=== PATIENT | female | born 1950 | race Caucasian/White ===

== ENCOUNTER 2018-01-30 04:34 | Observation (INO) ==
[2018-01-30] MEDS ORDERED: Pantoprazole Inj 80 MG in Sodium Chlor 0.9% Inj 50 ML IV.SIG ONE (05:06)
[2018-01-30 05:24] LABS: Baso % (Auto) 0.3 % (0.0-2.0); Eos # (Auto) 0.2 th/mm3 (0.0-0.4); Eos % (Auto) 1.6 % (0.0-4.0); Hematocrit 31.4 % (35.0-46.0); Hemoglobin 10.3 gm/dL (11.6-15.3); Lymph # (Auto) 2.7 th/mm3 (1.0-4.8); Lymph % (Auto) 19.2 % (9.0-44.0); Mean Corpuscular HGB Conc 32.8 % (32.0-36.0); Mean Corpuscular Hemoglobin 32.5 pg (27.0-34.0); Mean Corpuscular Volume 99.1 fL (80.0-100.0); Mean Platelet Volume 8.5 fL (7.0-11.0); Neut # (Auto) 10.2 th/mm3 (1.8-7.7); Neut % (Auto) 71.9 % (16.0-70.0); Platelet Count 227 th/mm3 (150-450); Red Blood Count 3.16 mil/mm3 (4.00-5.30); Red Cell Distribution Width 13.7 % (11.6-17.2); White Blood Count 14.2 th/mm3 (4.0-11.0)
[2018-01-30] MEDS: Sod Chloride 0.9% Inj 1,000 ML IV.CONT SCH ×3 (05:32→21:10)
[2018-01-30 05:36] LABS: Activated Partial Thrombo Time 21.7 sec (24.3-30.1); INR 1.1 Ratio; Prothrombin Time 10.7 sec (9.8-11.6)
--- NOTE | 2018-01-30 05:39 | XR ---
EXAM DATE: 01/30/2018 5:24 AM EDT AGE/SEX: 68 years / Female INDICATIONS: Short of breath, blood in stool, low back pain CLINICAL DATA: This is the patient's initial encounter. Patient reports that signs and symptoms have been present for 1 day and indicates a pain score of 5/10. MEDICAL/SURGICAL HISTORY: None. . spinal stimulatory COMPARISON: . FINDINGS: A single AP view of the chest demonstrates the lungs to be symmetrically aerated without evidence of mass, infiltrate or effusion. The cardiomediastinal contours are unremarkable. Osseous structures are intact. There is a spinal stimulator with tip near T8. CONCLUSION: No evidence of acute cardiopulmonary disease. Electronically signed by: Connor Ray MD 01/30/2018 5:38 AM EDT
[2018-01-30 05:43] LABS: Alanine Aminotransferase 19 U/L (10-53); Albumin 3.5 g/dL (3.4-5.0); Anion Gap 9 meq/L (5-15); Aspartate Aminotransferase 15 U/L (15-37); Blood Urea Nitrogen 68 mg/dL (7-18); Calcium 8.5 mg/dL (8.5-10.1); Carbon Dioxide 21.7 meq/L (21.0-32.0); Chloride 109 meq/L (98-107); Glomerular Filtration Rate 26 mL/min (>89); Glucose,Random 101 mg/dL (74-106); Lipase 102 U/L (73-393); Magnesium 1.7 mg/dL (1.5-2.5); Potassium 4.1 meq/L (3.5-5.1); Sodium 140 meq/L (136-145)
[2018-01-30 05:47] LABS: Alkaline Phosphatase 106 U/L (45-117); Total Protein 7.2 g/dL (6.4-8.2)
[2018-01-30] MEDS ORDERED: Pantoprazole Inj 80 MG in Sodium Chlor 0.9% Inj 100 ML IV.CONT SCH (06:00)
--- NOTE | 2018-01-30 06:11 | ED ---
HPI General Chief complaint: Nausea/Vomiting/Diarrhea Stated complaint: Bleeding Time Seen by Provider: 01/30/18 04:44 Source: patient Limitations: no limitations History of Present Illness HPI narrative: The patient is a 68 year old female who presents to the [facility] emergency department with a history of generalized weakness, fatigue, dyspnea on exertion that began earlier today. She reports that at 12:30 PM she then noticed blood in her stool with moving her bowels. She reports that she had 2 additional episodes prior to coming to the emergency department. She reports that she does have abdominal pain at times, however she attributes this to chronic intermittent abdominal pain since her gastric bypass. The patient reports that she does have acid reflux and this has been somewhat worse recently. She reports that she does take medication for this. She reports that she last had a colonoscopy done 1 year ago which was reportedly unremarkable. She denies ever having a GI bleed previously. She denies having any nausea or vomiting associated with this. She denies having any chest pain or chest pressure. She denies taking any anti-inflammatory pain medications. She denies having any known recent fevers. She does report having worsening recent back pain. She reports having chronic back pain related to degenerative disc disease and 2 prior fusions. She reports that she last had an epidural steroid injection done on Tuesday. She denies having any dysuria, hematuria, urinary urgency, or frequency. On review of systems otherwise, the patient denies having any cough, congestion, neck pain, or neurologic symptoms. Related Data Home Medications Medication Instructions Recorded Confirmed allopurinol 100 mg PO DAILY 01/30/18 01/30/18 famotidine 20 mg PO DAILY 01/30/18 01/30/18 fentanyl 1 patch TRANSDERMAL Q48H 01/30/18 01/30/18 ferrous sulfate 325 mg PO BID 01/30/18 01/30/18 fluoxetine [Prozac] 10 mg PO DAILY 01/30/18 01/30/18 hydrocodone-acetaminophen 1 tab PO Q6H 01/30/18 01/30/18 linaclotide [Linzess] 145 mcg PO EVERY OTHER DAY 01/30/18 01/30/18 pravastatin 40 mg PO DAILY 01/30/18 01/30/18 ranitidine HCl 150 mg PO BID 01/30/18 01/30/18 ropinirole 0.5 mg PO DAILY 01/30/18 01/30/18 trazodone 100 mg PO HS PRN 01/30/18 01/30/18 Allergies Allergy/AdvReac Type Severity Reaction Status Date / Time morphine Allergy Unconscious Verified 01/30/18 04:40 Penicillins Allergy Hives Verified 01/30/18 04:40 Review of Systems ROS: all other systems reviewed are negative FOR[facility]LY [facility] Medical History Medical History Chronic back pain (Acute) Chronic renal insufficiency (Acute) Fibromyalgia (Acute) Surgical History Surgical History H/O gastric bypass (Acute) H/O knee surgery (Acute) H/O spinal fusion (Acute) Hx of cholecystectomy (Acute) Social History Social History Substance History: No History of Abuse Second Hand Smoke Exposure: No Smoking Status: Never smoker How Often Do You Have a Drink Containing Alcohol: Never Recent Travel in [facility] within the Last 8 Weeks: No Recent Out of Country Travel within the Last 8 Weeks: No Immunization History Tetanus Immunization: >5 Years Exam Const General: cooperative, no acute distress and well developed Nutritional Appearance: well nourished Orientation: alert, awake and oriented x3 HENMT Head: normocephalic and atraumatic Nose: no nasal discharge and no epistaxis Mouth: moist mucous membranes Throat: posterior oropharynx normal and uvula midline Eyes Sclera: normal sclerae Pupils: PERRL Neck Neck: no meningeal signs, trachea midline and no JVD Resp Effort & Inspection: no use of accessory muscles Auscultation: clear to auscultation bilaterally Cardio Rate: regular rate Rhythm: regular rhythm Heart Sounds: no murmurs GI Inspection: non-distended Palpation: soft, no hepatosplenomegaly, no guarding, not rigid and tender in the epigastrum; not in the LLQ, not in the RLQ, not in the LUQ, not in the RUQ, not at McBurney's point, not suprapubicly, Farfan's sign negative and with no rebound tenderness Auscultation: normal bowel sounds Rectal Exam: visual inspection normal, abnormal stool black, No fissure, heme positive stool, No hemorrhoids, No mass and No tenderness Back/Spine/Pelvis Back: no CVA tenderness Skin General: dry skin (warm) Neuro General: alert, awake, oriented x3 and other (Grossly nonfocal.) Speech: speech normal Motor: no movement abnormalities noted Extrem General: normal to inspection (2+ pulses in all 4 extremities.), no calf tenderness, no clubbing, no cyanosis and no edema Psych Mood: congruent mood Affect: normal affect Judgment: judgment good Course Initial Documented Vital Signs Temperature 97.2 F L 01/30/18 04:36 Pulse Rate 116 H 01/30/18 04:36 Respiratory Rate 18 01/30/18 04:36 Blood Pressure 127/73 01/30/18 04:36 Pulse Oximetry 98 01/30/18 04:36 Last Documented Vital Signs Temperature 97.2 F L 01/30/18 04:36 Pulse Rate 78 01/30/18 07:30 Respiratory Rate 24 01/30/18 07:30 Blood Pressure 112/57 L 01/30/18 07:30 Pulse Oximetry 99 01/30/18 07:30 Sign Out Sign Out Data: Patient Sign Out occurred on 01/30/18 at 07:39. Patient's care was discussed, and care was transferred from Maura Duncan MD to Devon Vizcaino MD. Sign Out Comment: The patient's case was checked out to the oncoming emergency physician to disposition the patient based on the conclusion of her workup. Anticipate that the patient will be admitted for a GI bleed. Patient is pending CT scan of the abdomen and pelvis results. Last updated by Maura Duncan MD at 01/30/18 07:16 Post-Handoff Eval: The patient's hemoglobin was 10.8. Creatinine was elevated, however, patient does have a history of CKD. The patient recently moved from [place] 1 year ago, does have a primary physician, Dr. Delia Eduardo, however, does not have a quiller tender in the local area. The patient did have her last panendoscopy approximately 1 year ago. She is not currently on any anticoagulants. However, the patient did have another episode of melena while in the emergency department. Therefore, patient will be a 23-hour observation for serial CBC and gastroneurology evaluation for possible and panendoscopy either inpatient or scheduled outpatient. The patient is comfortable with this plan of care and disposition. I discussed the patient with the on-call medical team who agreed with admission. Medical Decision Making MDM Narrative Medical decision making narrative: During the course of the patient's emergency department visit, the patient's history, examination, and differential diagnosis were reviewed with the patient. The patient was placed on a cardiac rn with oximetry and frequent blood pressure monitoring. The patient had IV access obtained and blood work sent for analysis. A diagnostic evaluation was started regarding the patient's lower GI bleed. The patient was initially provided normal saline IV fluids, Protonix 80 mg as a bolus, followed by a Protonix drip. The patient's diagnostic evaluation is remarkable for a white count of 14.2, hemoglobin 10.3, platelets 227 with 71.9 neutrophils, PT 10.7, INR 1.1, PTT 21.7 , chemistries remarkable for chloride of 109, BUN is 68, creatinine 1.90. Troponin I is less than 0.02, ammonia level within normal limits at 25, lipase within normal limits. The patient's chest x-ray showed no evidence of acute cardiopulmonary disease. The patient is pending CT scan of the abdomen and pelvis. The patient's case will be checked out to the oncoming emergency physician to disposition the patient based on the conclusion of her workup. I anticipate that the patient will be admitted to the hospital for a GI bleed. Medical Screen Exam Complete: Yes Emergency Medical Condition: Yes Medical Records Medical records reviewed: Yes I reviewed the patient's medical records. Lab Data Lab results reviewed: Yes I reviewed the patient's lab results. Result diagrams: 01/30/18 05:15 01/30/18 05:15 Lab Results 01/30/18 01/30/18 01/30/18 Range/Units 05:15 05:15 05:15 WBC 14.2 H (4.0-11.0) th/mm3 RBC 3.16 L (4.00-5.30) mil/mm3 Hgb 10.3 L (11.6-15.3) gm/dL Hct 31.4 L (35.0-46.0) % MCV 99.1 (80.0-100.0) fL MCH 32.5 (27.0-34.0) pg MCHC 32.8 (32.0-36.0) % RDW 13.7 (11.6-17.2) % Plt Count 227 (150-450) th/mm3 MPV 8.5 (7.0-11.0) fL Neut % (Auto) 71.9 H (16.0-70.0) % Lymph % (Auto) 19.2 (9.0-44.0) % [place] % (Auto) 7.0 (0.0-8.0) % Eos % (Auto) 1.6 (0.0-4.0) % Baso % (Auto) 0.3 (0.0-2.0) % Neut # (Auto) 10.2 H (1.8-7.7) th/mm3 Lymph # (Auto) 2.7 (1.0-4.8) th/mm3 [place] # (Auto) 1.0 H (0.0-0.9) th/mm3 Eos # (Auto) 0.2 (0.0-0.4) th/mm3 Baso # (Auto) 0.0 (0.0-0.2) th/mm3 WBC Differential . Differential Comment Auto diff final PT 10.7 (9.8-11.6) sec INR 1.1 Ratio APTT 21.7 L (24.3-30.1) sec Sodium 140 (136-145) meq/L Potassium 4.1 (3.5-5.1) meq/L Chloride 109 H (98-107) meq/L Carbon Dioxide 21.7 (21.0-32.0) meq/L Anion Gap 9 (5-15) meq/L BUN 68 H (7-18) mg/dL Creatinine 1.90 H (0.50-1.00) mg/dL Estimated GFR 26 L (>89) mL/min Random Glucose 101 (74-106) mg/dL Calcium 8.5 (8.5-10.1) mg/dL Magnesium 1.7 (1.5-2.5) mg/dL Total Bilirubin 0.3 (0.2-1.0) mg/dL AST 15 (15-37) U/L ALT 19 (10-53) U/L Alkaline Phosphatase 106 (45-117) U/L Ammonia (11-32) mcmol/L Troponin I Less than 0.02 L (0.02-0.05) ng/mL Total Protein 7.2 (6.4-8.2) g/dL Albumin 3.5 (3.4-5.0) g/dL Lipase 102 (73-393) U/L Blood Type Blood Type Recheck Antibody Screen 01/30/18 01/30/18 Range/Units 05:15 05:15 WBC (4.0-11.0) th/mm3 RBC (4.00-5.30) mil/mm3 Hgb (11.6-15.3) gm/dL Hct (35.0-46.0) % MCV (80.0-100.0) fL MCH (27.0-34.0) pg MCHC (32.0-36.0) % RDW (11.6-17.2) % Plt Count (150-450) th/mm3 MPV (7.0-11.0) fL Neut % (Auto) (16.0-70.0) % Lymph % (Auto) (9.0-44.0) % [place] % (Auto) (0.0-8.0) % Eos % (Auto) (0.0-4.0) % Baso % (Auto) (0.0-2.0) % Neut # (Auto) (1.8-7.7) th/mm3 Lymph # (Auto) (1.0-4.8) th/mm3 [place] # (Auto) (0.0-0.9) th/mm3 Eos # (Auto) (0.0-0.4) th/mm3 Baso # (Auto) (0.0-0.2) th/mm3 WBC Differential Differential Comment PT (9.8-11.6) sec INR Ratio APTT (24.3-30.1) sec Sodium (136-145) meq/L Potassium (3.5-5.1) meq/L Chloride (98-107) meq/L Carbon Dioxide (21.0-32.0) meq/L Anion Gap (5-15) meq/L BUN (7-18) mg/dL Creatinine (0.50-1.00) mg/dL Estimated GFR (>89) mL/min Random Glucose (74-106) mg/dL Calcium (8.5-10.1) mg/dL Magnesium (1.5-2.5) mg/dL Total Bilirubin (0.2-1.0) mg/dL AST (15-37) U/L ALT (10-53) U/L Alkaline Phosphatase (45-117) U/L Ammonia 25 (11-32) mcmol/L Troponin I (0.02-0.05) ng/mL Total Protein (6.4-8.2) g/dL Albumin (3.4-5.0) g/dL Lipase (73-393) U/L Blood Type A Negative Blood Type Recheck Required Antibody Screen Negative Imaging Data Radiologist's impression: Chest X-Ray 01/30/18 05:06 CONCLUSION: No evidence of acute cardiopulmonary disease. Abdomen/Pelvis CT 01/30/18 06:23 CONCLUSION: 1. Transpedicular fixation L4-L5 with fracture of the hardware 2. Previous gastric bypass surgery 3. Spinal stimulator 4. Do not see an etiology for the blood in the stool. Discharge Plan Discharge Disposition Patient Disposition: 30 Still Patient Discharge Condition Condition: Stable Discharge Details Diagnosis: GI bleed Physicians Team ED Provider: Devon Vizcaino Primary Care Provider: Primary Care Maral Lewis Rxs /Orders / Referrals /Forms Prescriptions: No Action pravastatin 40 mg Tablet 40 mg PO DAILY RF: 0 allopurinol 100 mg Tablet 100 mg PO DAILY RF: 0 famotidine 20 mg Tablet 20 mg PO DAILY RF: 0 trazodone 100 mg Tablet 100 mg PO HS PRN (Reason: Sleep) RF: 0 hydrocodone-acetaminophen 7.5-325 mg Tablet 1 tab PO Q6H RF: 0 ferrous sulfate 325 mg (65 mg iron) Tablet 325 mg PO BID RF: 0 ropinirole 0.5 mg Tablet 0.5 mg PO DAILY RF: 0 ranitidine HCl 150 mg Tablet 150 mg PO BID RF: 0 fluoxetine [Prozac] 10 mg Capsule 10 mg PO DAILY RF: 0 fentanyl 25 mcg/hr Patch 72 Hour 1 patch TRANSDERMAL Q48H RF: 0 linaclotide [Linzess] 145 mcg Capsule 145 mcg PO EVERY OTHER DAY RF: 0 Discharge Interventions Interventions: Vital Signs Last Done: 01/30/18 07:30 Status ED Status: Admitted Patient
[2018-01-30] MEDS ORDERED: Diatrizoate Meglum/Diatrizoate Sod Liq 9 ML UDC PO ONE (06:23)
--- NOTE | 2018-01-30 08:11 | CT ---
EXAM DATE: 01/30/2018 8:04 AM EDT AGE/SEX: 68 years / Female INDICATIONS: Blood in stool. CLINICAL DATA: This is the patient's initial encounter. Patient reports that signs and symptoms have been present for 1 day and indicates a pain score of 0/10. MEDICAL/SURGICAL HISTORY: Chronic renal insufficiency. Gastric bypass. Cholecystectomy. Fusio n, lumbar. Pain stimulator. RADIATION DOSE: 6.57 CTDI (mGy) COMPARISON: No prior exams available for comparison. TECHNIQUE: Multiple contiguous axial images were obtained through the abdomen. Images were obtained using multiple row detector helical technique. Using automated exposure control and adjustment of the mA and/or kV according to patient size, radiation dose was kept as low as reasonably achievable to o btain optimal diagnostic quality images. DICOM format image data is available electronically for rev iew and comparison. FINDINGS: The lower lungs are clear. Previous gastric surgery Liver is free of focal defects. Gallbladder surgically absent. Pancreas and spleen appear normal Minimal peritoneal calcifications are present adjacent to the spleen nonspecific. There is no ascites or adenopathy Cecum, ascending, transverse and descending colon appear normal. There is previous transpedicular fixation lower lumbar spine with fracture of the hardware. Spinal stimulator is evident Pelvic contents are unremarkable. I don't see an etiology for the blood in the stool. Review of bone windows reveals extensive previous surgery in the lower lumbar spine with transpedicul ar fixation from L2 to L5 with hardware failure. CONCLUSION: 1. Transpedicular fixation L4-L5 with fracture of the hardware 2. Previous gastric bypass surgery 3. Spinal stimulator 4. Do not see an etiology for the blood in the stool. Electronically signed by: Kwaku Abarca MD 01/30/2018 8:10 AM EDT
--- NOTE | 2018-01-30 09:14 | P.HPIM ---
History of Present Illness Service: [facility] Primary Care Physician: No Primary Care Physician Chief Complaint: bloody stools History of Present Illness: The is a 68 y/o CF with PMHx of Gastric Bypass, GERD, and Chronic pain who presents to the [facility] emergency department with a history of generalized weakness, fatigue, and melena that began yesterday at 12:30 PM. She reports that she had a large bowel movement that was loose with dark contents around the stool that looked like old blood. Patient also reports that there were small amounts of bright red blood around the toilet bowl ring. Patient is on FeSulfate but reports that her stool is different from baseline. She reports that she had 2 additional BM's prior to coming to the emergency department that were the same. Patient reports that she last had a colonoscopy done 1 year ago which was WNL in [place]. She denies ever having a GI bleed previously. Hx of chronic back pain related to degenerative disc disease s/p fusion, patient had an epidural steroid injection on Tuesday. Patient also has a history of a EGD and colonoscopy that were WNL 4-5 years ago which were done due to abdominal pain status post gastric bypass surgery. Patient used to see a GI doctor in [place] but here in [place] sees a pig machine operator and a PCP, Dr. Eduardo. Of note, patient moved from [place] 6 months ago. - Diagnosis (1) Anxiety (2) Depression (3) GERD (gastroesophageal reflux disease) (4) GI bleed Review of Systems All other systems reviewed negative except as stated in HPI PMFSH - History History Provided By: Patient - Medical History Medical History: Medical History (Last Reviewed 01/30/18 @ 09:44 by Aster Hackett MD) Chronic back pain Chronic renal insufficiency Fibromyalgia - Surgical History Surgical History: Surgical History (Last Reviewed 01/30/18 @ 09:44 by Aster Hackett MD) H/O gastric bypass H/O knee surgery H/O spinal fusion Hx of cholecystectomy - Family History Family History: Family History (Last Updated 01/30/18 @ 09:45 by Aster Hackett MD) Other Family history normal - Tobacco History Second Hand Smoke Exposure: No Smoking Status: Never smoker - Alcohol History How Often Do You Have a Drink Containing Alcohol: Never - Substance Use History Substance History: No History of Abuse - Travel History Recent Travel in the [facility] Within the Last 8 Weeks: No Recent Travel Out of the Country Within the Last 8 Weeks: No - Immunization History Tetanus Immunization: >5 Years Medications and Allergies Active Medications: Active Medications Pantoprazole Sodium 80 mg/ (Sodium Chloride) 100 mls @ 10 mls/hr IV.CONT CONT DALTON Last Admin: 01/30/18 05:32 Dose: 10 mls/hr Sodium Chloride (Ns Inj) 1,000 mls @ 125 mls/hr IV.CONT .Q8H DALTON Last Admin: 01/30/18 05:32 Dose: 125 mls/hr Ondansetron HCl (Zofran Inj) 4 mg IV.PUSH Q6H PRN PRN Reason: NAUSEA Pantoprazole Sodium (Protonix Inj) 40 mg IV.PUSH DAILY DALTON Sodium Chloride (Ns Flush) 2 ml IV.FLUSH BID DALTON Sodium Chloride (Ns Flush) 2 ml IV.FLUSH UNSCH PRN PRN Reason: FLUSH AFTER USING IV ACCESS Allergies Allergy/AdvReac Type Severity Reaction Status Date / Time morphine Allergy Unconscious Verified 01/30/18 04:40 Penicillins Allergy Hives Verified 01/30/18 04:40 Home Medications Medication Instructions Recorded Confirmed Type allopurinol 100 mg PO DAILY 01/30/18 01/30/18 History famotidine 20 mg PO DAILY 01/30/18 01/30/18 History fentanyl 1 patch TRANSDERMAL Q48H 01/30/18 01/30/18 History ferrous sulfate 325 mg PO BID 01/30/18 01/30/18 History fluoxetine [Prozac] 10 mg PO DAILY 01/30/18 01/30/18 History hydrocodone-acetaminophen 1 tab PO Q6H 01/30/18 01/30/18 History linaclotide [Linzess] 145 mcg PO EVERY OTHER DAY 01/30/18 01/30/18 History pravastatin 40 mg PO DAILY 01/30/18 01/30/18 History ranitidine HCl 150 mg PO BID 01/30/18 01/30/18 History ropinirole 0.5 mg PO DAILY 01/30/18 01/30/18 History trazodone 100 mg PO HS PRN 01/30/18 01/30/18 History Exam Vital signs: Vital Signs 01/30/18 04:36 01/30/18 04:57 01/30/18 05:53 Temperature 97.2 F L Pulse Rate 116 H 103 H Respiratory Rate 18 25 H Blood Pressure 127/73 118/58 L Pulse Oximetry 98 99 99 01/30/18 07:30 Temperature Pulse Rate 78 Respiratory Rate 24 Blood Pressure 112/57 L Pulse Oximetry 99 Intake & Output 01/29/18 01/30/18 01/30/18 18:59 06:59 18:59 Intake Total 50 / 50 Balance 50 / 50 Weight 61.235 kg Intake: IV 50 / 50 Protonix Inj 80 MG In NS Inj 50 50 / 50 ML @ 600 mls/hr IV.SIG BOLUS ONE Rx#:[id number] Narrative: GENERAL: female, in no acute distress, lying comfortably in bed SKIN: Warm and dry. HEENT: Normocephalic. Atraumatic. PERRLA. No scleral icterus. No injection or drainage. MOM. NECK: Supple, trachea midline. No JVD or lymphadenopathy. CARDIOVASCULAR: Regular rate and rhythm without murmurs, gallops, or rubs. RESPIRATORY: Breath sounds equal bilaterally. No accessory muscle use. GASTROINTESTINAL: Abdomen soft, non-tender, nondistended. Neg rebound, well- healed surgical scars. MUSCULOSKELETAL: No cyanosis, or edema. BACK: Nontender without obvious deformity. No CVA tenderness. NEURO: AAO x3, no focal deficits, motor system intact 5/5, speech clear. Results - Labs CBC & Chem 7: 01/30/18 05:15 01/30/18 05:15 Labs: Short CBC 01/30/18 Range/Units 05:15 WBC 14.2 H (4.0-11.0) th/mm3 Hgb 10.3 L (11.6-15.3) gm/dL Hct 31.4 L (35.0-46.0) % Plt Count 227 (150-450) th/mm3 BMP 01/30/18 05:15 Sodium 140 Potassium 4.1 Chloride 109 H Carbon Dioxide 21.7 BUN 68 H Creatinine 1.90 H Calcium 8.5 Cardiac Enzymes 01/30/18 Range/Units 05:15 Troponin I Less than 0.02 L (0.02-0.05) ng/mL Liver Function 01/30/18 Range/Units 05:15 Total Bilirubin 0.3 (0.2-1.0) mg/dL AST 15 (15-37) U/L ALT 19 (10-53) U/L Alkaline Phosphatase 106 (45-117) U/L Albumin 3.5 (3.4-5.0) g/dL - Imaging Impressions Chest X-Ray 01/30/18 05:06 CONCLUSION: No evidence of acute cardiopulmonary disease. Abdomen/Pelvis CT 01/30/18 06:23 CONCLUSION: 1. Transpedicular fixation L4-L5 with fracture of the hardware 2. Previous gastric bypass surgery 3. Spinal stimulator 4. Do not see an etiology for the blood in the stool. Caprini VTE Risk Assessment Caprini VTE Risk Assessment: No/Low Risk (score <= 1) Caprini Risk Assessment Model: Point Value = 1 Point Value = 2 Point Value = 3 Point Value = 5 Age 41-60 Minor surgery BMI > 25 kg/m2 Swollen legs Varicose veins or History of unexplained or recurrent spontaneous Oral contraceptives or hormone replacement Sepsis (< 1 month) Serious lung disease, including pneumonia (< 1 month) Abnormal pulmonary function Acute myocardial infarction Congestive heart failure (< 1 month) History of inflammatory bowel disease Medical patient at bed rest Age 61-74 Arthroscopic surgery Major open surgery (> 45 min) Laparoscopic surgery (> 45 min) Malignancy Confined to bed (> 72 hours) Immobilizing plaster cast Central venous access Age >= 75 History of VTE Family history of VTE Factor V Leiden Prothrombin [id number] Lupus anticoagulant Anticardiolipin antibodies Elevated serum homocysteine Heparin-induced thrombocytopenia Other congenital or acquired thrombophilia Stroke (< 1 month) Elective arthroplasty Hip, pelvis, or leg fracture Acute spinal cord injury (< 1 month) Prophylaxis Regimen: Total Risk Factor Score Risk Level Prophylaxis Regimen 0-1 Low Early ambulation 2 Moderate Order ONE of the following: *Sequential Compression Device (SCD) *Heparin 5000 units SQ BID 3-4 Higher Order ONE of the following medications: *Heparin 5000 units SQ TID *Enoxaparin/Lovenox 40 mg SQ daily (WT < 150 kg, CrCl > 30 mL/min) *Enoxaparin/Lovenox 30 mg SQ daily (WT < 150 kg, CrCl > 10-29 mL/min) *Enoxaparin/Lovenox 30 mg SQ BID (WT < 150 kg, CrCl > 30 mL/min) AND/OR *Sequential Compression Device (SCD) 5 or more Highest Order ONE of the following medications: *Heparin 5000 units SQ TID (Preferred with Epidurals) *Enoxaparin/Lovenox 40 mg SQ daily (WT < 150 kg, CrCl > 30 mL/min) *Enoxaparin/Lovenox 30 mg SQ daily (WT < 150 kg, CrCl > 10-29 mL/min) *Enoxaparin/Lovenox 30 mg SQ BID (WT < 150 kg, CrCl > 30 mL/min) AND *Sequential Compression Device (SCD) Assessment and Plan - Assessment (1) Anxiety Code(s): F41.9 - Anxiety disorder, unspecified Status: Chronic (2) Depression Code(s): F32.9 - Major depressive disorder, single episode, unspecified Status : Chronic (3) GERD (gastroesophageal reflux disease) Code(s): K21.9 - Gastro-esophageal reflux disease without esophagitis Status: Chronic (4) GI bleed Code(s): K92.2 - Gastrointestinal hemorrhage, unspecified Status: Acute - Plan 68-year female with past medical history of gastric bypass, GERD, and chronic pain admitted for inpatient management of possible GI bleed, HD #1 1. GI Bleed, no previous hx Continue PPI IV, IV fluids, n.p.o. status Continue Zofran PRN GI consulted for assistance with management We will obtain serial H&H's, hemoglobin 10.3 on admission, unknown baseline however patient is on ferrous sulfate at home Per patient colonoscopy in 2017 within normal limits EGD and colonoscopy 4-5 years ago WNL per patient 2. Hx of GERD Holding home ranitidine and famotidine On pantoprazole IV 3. Leukocytosis WBC 14.2 on admission Likely stress reaction from GI bleed Negative chest x-ray on admission, will obtain UA to rule out infection 4. Hx of Anemia Hemoglobin 10.3 on admission, history of requiring iron transfusion Continue home Ferrous sulfate Unknown baseline Follow-up H&H every 6 hours 5. Acute on Chronic kidney disease Likely due to dehydration Unknown baseline, sees a pig machine operator as outpatient BUN 68, Creatinine 1.90 on admission Continue IV fluids Avoid nephrotoxic medications Follow-up BMP in AM 6. Gout Continue Allopurinol for prophylaxis 7. Hx of Insomnia Continue home Fluoxetine QD and Trazodone PRN 8. Chronic pain Continue home Fentanyl patch and Hydrocodone Q6hrs PRN (takes Linzess due to constipation from opioids, will continue) 9. Hyperlipidemia Continue home Pravastatin 10. Restless leg syndrome Continue home Ropinerole 11. DVT PPX: SCD's 12. Dispo: F/U serial H&H Q6hrs and GI reccs Code Status: full Discussed Condition With: patient, RN, ER physician (4) GI bleed Qualifiers: GI bleed type/associated pathology: anabell Qualified Code(s): K92.1 - Anabell
[2018-01-30] MEDS ORDERED: Pantoprazole Inj 40 MG Vial IV.PUSH SCH (10:00)
--- NOTE | 2018-01-30 11:24 | P.CONGI ---
History of Present Illness Consult date: 01/30/18 Consult reason: GI bleed/melena stools Chief complaint: GI Bleed, Melena History of Present Illness: This patient is a 68-year-old female with a past medical history of gastric bypass, GERD, chronic pain, anxiety chronic neck and back pain, osteoarthritis and fibromyalgia. Patient's surgical history includes bilateral knee replacement, carpal tunnel surgery, cholecystectomy, appendectomy and gastric bypass ([id number]) and spinal fusion of the lumbar spine. Our service has been consulted to evaluate patient's report of dark "tarry black " stools times 1 day. On consultation patient reports onset of black tarry stools yesterday. Patient states that there has also been noted to be some bright red blood in the toilet water as well. Patient also reports lower abdominal pain that she describes as cramping which is intermittent. Patient denies any alleviating or aggravating factors. Denies any use of blood thinners, significant ingestion of green leafy vegetables, or use of Pepto-Bismol. Patient denies any use of NSAIDs or aspirin. Patient denies nausea or vomiting. She states her last EGD/colonoscopy was done 4-5 years ago out of state in [place] and was normal to her recollection. Patient states her stools are normally formed and brown without any noted blood. She takes Linzess every other day for what she describes as opioid- induced constipation. Patient uses fentanyl patch and hydrocodone- acetaminophen for chronic pain. Patient denies heartburn but states that she experiences occasional nausea vomiting since gastric bypass surgery. She is presently taking ranitidine 150 mg p.o. twice daily, famotidine 20 mg p.o. daily. Patient denies any known family history of any gastrointestinal disorders/diseases and denies any use of tobacco or alcohol products <Ximena Sahni - Last Filed: 01/30/18 11:09> Review of Systems All other systems reviewed negative except as stated in HPI <Ximena Sahni - Last Filed: 01/30/18 11:09> PMFSH - History History Provided By: Patient - Medical History Medical History: Medical History (Last Reviewed 01/30/18 @ 09:44 by Aster Hackett MD) Chronic back pain Chronic renal insufficiency Fibromyalgia - Surgical History Surgical History: Surgical History (Last Reviewed 01/30/18 @ 09:44 by Aster Hackett MD) H/O gastric bypass H/O knee surgery H/O spinal fusion Hx of cholecystectomy - Family History Family History: Family History (Last Updated 01/30/18 @ 09:45 by Aster Hackett MD) Other Family history normal - Tobacco History Second Hand Smoke Exposure: No Smoking Status: Never smoker - Alcohol History How Often Do You Have a Drink Containing Alcohol: Never - Substance Use History Substance History: No History of Abuse - Travel History Recent Travel in the [place] Within the Last 8 Weeks: No Recent Travel Out of the Country Within the Last 8 Weeks: No - Immunization History Tetanus Immunization: >5 Years <Ximena Sahni - Last Filed: 01/30/18 11:09> - Medical History Medical History: Medical History (Last Reviewed 01/30/18 @ 09:44 by Aster Hackett MD) Chronic back pain Chronic renal insufficiency Fibromyalgia - Surgical History Surgical History: Surgical History (Last Reviewed 01/30/18 @ 09:44 by Aster Hackett MD) H/O gastric bypass H/O knee surgery H/O spinal fusion Hx of cholecystectomy - Family History Family History: Family History (Last Updated 01/30/18 @ 09:45 by Aster Hackett MD) Other Family history normal <Darion Maddox - Last Filed: 01/30/18 11:52> Medications and Allergies Active Medications: Active Medications Hydrocodone Bitart/Acetaminophen ([place] 7.5/325) 1 tab PO Q6H [facility] Last Admin: 01/30/18 10:54 Dose: 1 tab Allopurinol (Zyloprim) 100 mg PO DAILY [facility] Fentanyl (Duragesic 25 Mcg Patch.72hr) 1 patch T-DERMAL Q72H [facility] Last Admin: 01/30/18 10:54 Dose: 1 patch Ferrous Sulfate (Ferosul) 325 mg PO BID [facility] Fluoxetine HCl (Prozac) 10 mg PO DAILY [facility] Pantoprazole Sodium 80 mg/ (Sodium Chloride) 100 mls @ 10 mls/hr IV.CONT CONT [facility] Last Infusion: 01/30/18 09:21 Dose: 10 mls/hr Sodium Chloride (Ns Inj) 1,000 mls @ 125 mls/hr IV.CONT .Q8H [facility] Last Admin: 01/30/18 05:32 Dose: 125 mls/hr Ondansetron HCl (Zofran Inj) 4 mg IV.PUSH Q6H PRN PRN Reason: NAUSEA Patch Removal (Remove Old Patch) 1 each T-DERMAL Q72H [facility] Last Admin: 01/30/18 10:55 Dose: 1 each Pravastatin Sodium (Pravachol) 40 mg PO DAILY [facility] Ropinirole HCl (Requip) 0.5 mg PO DAILY [facility] Sodium Chloride (Ns Flush) 2 ml IV.FLUSH BID [facility] Sodium Chloride (Ns Flush) 2 ml IV.FLUSH UNSCH PRN PRN Reason: FLUSH AFTER USING IV ACCESS Trazodone HCl (Desyrel) 100 mg PO HS PRN PRN Reason: Sleep <Sahni,Ximena - Last Filed: 01/30/18 11:09> Active Medications: Active Medications Hydrocodone Bitart/Acetaminophen ([place] 7.5/325) 1 tab PO Q6H [facility] Last Admin: 01/30/18 10:54 Dose: 1 tab Allopurinol (Zyloprim) 100 mg PO DAILY [facility] Fentanyl (Duragesic 25 Mcg Patch.72hr) 1 patch T-DERMAL Q72H [facility] Last Admin: 01/30/18 10:54 Dose: 1 patch Ferrous Sulfate (Ferosul) 325 mg PO BID [facility] Fluoxetine HCl (Prozac) 10 mg PO DAILY [facility] Pantoprazole Sodium 80 mg/ (Sodium Chloride) 100 mls @ 10 mls/hr IV.CONT CONT [facility] Last Infusion: 01/30/18 09:21 Dose: 10 mls/hr Sodium Chloride (Ns Inj) 1,000 mls @ 125 mls/hr IV.CONT .Q8H [facility] Last Admin: 01/30/18 05:32 Dose: 125 mls/hr Ondansetron HCl (Zofran Inj) 4 mg IV.PUSH Q6H PRN PRN Reason: NAUSEA Patch Removal (Remove Old Patch) 1 each T-DERMAL Q72H [facility] Last Admin: 01/30/18 10:55 Dose: 1 each Pravastatin Sodium (Pravachol) 40 mg PO DAILY [facility] Ropinirole HCl (Requip) 0.5 mg PO DAILY [facility] Sodium Chloride (Ns Flush) 2 ml IV.FLUSH BID [facility] Sodium Chloride (Ns Flush) 2 ml IV.FLUSH UNSCH PRN PRN Reason: FLUSH AFTER USING IV ACCESS Trazodone HCl (Desyrel) 100 mg PO HS PRN PRN Reason: Sleep <Hemaidan,Ammar - Last Filed: 01/30/18 11:52> Allergies Allergy/AdvReac Type Severity Reaction Status Date / Time morphine Allergy Unconscious Verified 01/30/18 04:40 Penicillins Allergy Hives Verified 01/30/18 04:40 Home Medications Medication Instructions Recorded Confirmed Type allopurinol 100 mg PO DAILY 01/30/18 01/30/18 History famotidine 20 mg PO DAILY 01/30/18 01/30/18 History fentanyl 1 patch TRANSDERMAL Q48H 01/30/18 01/30/18 History ferrous sulfate 325 mg PO BID 01/30/18 01/30/18 History fluoxetine [Prozac] 10 mg PO DAILY 01/30/18 01/30/18 History hydrocodone-acetaminophen 1 tab PO Q6H 01/30/18 01/30/18 History linaclotide [Linzess] 145 mcg PO EVERY OTHER DAY 01/30/18 01/30/18 History pravastatin 40 mg PO DAILY 01/30/18 01/30/18 History ranitidine HCl 150 mg PO BID 01/30/18 01/30/18 History ropinirole 0.5 mg PO DAILY 01/30/18 01/30/18 History trazodone 100 mg PO HS PRN 01/30/18 01/30/18 History Exam Vital signs: Vital Signs 01/30/18 04:36 01/30/18 04:57 01/30/18 05:53 Temperature 97.2 F L Pulse Rate 116 H 103 H Respiratory Rate 18 25 H Blood Pressure 127/73 118/58 L Pulse Oximetry 98 99 99 01/30/18 07:30 01/30/18 08:30 Temperature Pulse Rate 78 78 Respiratory Rate 24 18 Blood Pressure 112/57 L 110/53 L Pulse Oximetry 99 Intake & Output 01/29/18 01/30/18 01/30/18 18:59 06:59 18:59 Intake Total 50 / 50 Balance 50 / 50 Weight 61.235 kg Intake: IV 50 / 50 Protonix Inj 80 MG In NS Inj 50 50 / 50 ML @ 600 mls/hr IV.SIG BOLUS ONE Rx#:[id number] Other: Date of Last Bowel Movement 01/29/18 - Constitutional no acute distress - Routine HEENT Exam Head: Present: normocephalic - Routine Neck Exam Present: supple - Routine Respiratory Exam Present: CTA bilaterally. Absent: accessory muscle use - Routine Cardiovascular Exam Present: RRR - Routine Abdominal Exam Present: soft, normoactive bowel sounds. Absent: tenderness, distended, guarding, firm - Routine Extremities Exam Present: full ROM, pulses intact. Absent: edema - Routine Skin Exam Present: dry, warm - Routine Neurological Exam Present: alert, oriented X3 <SahniXimena - Last Filed: 01/30/18 11:09> Vital signs: Vital Signs 01/30/18 04:36 01/30/18 04:57 01/30/18 05:53 Temperature 97.2 F L Pulse Rate 116 H 103 H Respiratory Rate 18 25 H Blood Pressure 127/73 118/58 L Pulse Oximetry 98 99 99 01/30/18 07:30 01/30/18 08:30 Temperature Pulse Rate 78 78 Respiratory Rate 24 18 Blood Pressure 112/57 L 110/53 L Pulse Oximetry 99 Intake & Output 01/29/18 01/30/18 01/30/18 18:59 06:59 18:59 Intake Total 50 / 50 Balance 50 / 50 Weight 61.235 kg Intake: IV 50 / 50 Protonix Inj 80 MG In NS Inj 50 50 / 50 ML @ 600 mls/hr IV.SIG BOLUS ONE Rx#:[id number] Other: Date of Last Bowel Movement 01/29/18 <Darion Maddox - Last Filed: 01/30/18 11:52> Results - Labs CBC & Chem 7: 01/30/18 05:15 01/30/18 05:15 Labs: Laboratory Results - last 24 hr 01/30/18 01/30/18 01/30/18 05:15 05:15 05:15 WBC 14.2 H RBC 3.16 L Hgb 10.3 L Hct 31.4 L MCV 99.1 MCH 32.5 MCHC 32.8 RDW 13.7 Plt Count 227 MPV 8.5 Neut % (Auto) 71.9 H Lymph % (Auto) 19.2 [place] % (Auto) 7.0 Eos % (Auto) 1.6 Baso % (Auto) 0.3 Neut # (Auto) 10.2 H Lymph # (Auto) 2.7 [place] # (Auto) 1.0 H Eos # (Auto) 0.2 Baso # (Auto) 0.0 WBC Differential . Differential Comment Auto diff final PT 10.7 INR 1.1 APTT 21.7 L Sodium 140 Potassium 4.1 Chloride 109 H Carbon Dioxide 21.7 Anion Gap 9 BUN 68 H Creatinine 1.90 H Estimated GFR 26 L Random Glucose 101 Calcium 8.5 Magnesium 1.7 Total Bilirubin 0.3 AST 15 ALT 19 Alkaline Phosphatase 106 Ammonia Troponin I Less than 0.02 L Total Protein 7.2 Albumin 3.5 Lipase 102 Blood Type Blood Type Recheck Antibody Screen 01/30/18 01/30/18 05:15 05:15 WBC RBC Hgb Hct MCV MCH MCHC RDW Plt Count MPV Neut % (Auto) Lymph % (Auto) [place] % (Auto) Eos % (Auto) Baso % (Auto) Neut # (Auto) Lymph # (Auto) [place] # (Auto) Eos # (Auto) Baso # (Auto) WBC Differential Differential Comment PT INR APTT Sodium Potassium Chloride Carbon Dioxide Anion Gap BUN Creatinine Estimated GFR Random Glucose Calcium Magnesium Total Bilirubin AST ALT Alkaline Phosphatase Ammonia 25 Troponin I Total Protein Albumin Lipase Blood Type A Negative Blood Type Recheck Required Antibody Screen Negative - Imaging Impressions Chest X-Ray 01/30/18 05:06 CONCLUSION: No evidence of acute cardiopulmonary disease. Abdomen/Pelvis CT 01/30/18 06:23 CONCLUSION: 1. Transpedicular fixation L4-L5 with fracture of the hardware 2. Previous gastric bypass surgery 3. Spinal stimulator 4. Do not see an etiology for the blood in the stool. <Ximena Sahni - Last Filed: 01/30/18 11:09> - Labs CBC & Chem 7: 01/30/18 05:15 01/30/18 05:15 Labs: Laboratory Results - last 24 hr 01/30/18 01/30/18 01/30/18 05:15 05:15 05:15 WBC 14.2 H RBC 3.16 L Hgb 10.3 L Hct 31.4 L MCV 99.1 MCH 32.5 MCHC 32.8 RDW 13.7 Plt Count 227 MPV 8.5 Neut % (Auto) 71.9 H Lymph % (Auto) 19.2 [place] % (Auto) 7.0 Eos % (Auto) 1.6 Baso % (Auto) 0.3 Neut # (Auto) 10.2 H Lymph # (Auto) 2.7 [place] # (Auto) 1.0 H Eos # (Auto) 0.2 Baso # (Auto) 0.0 WBC Differential . Differential Comment Auto diff final PT 10.7 INR 1.1 APTT 21.7 L Sodium 140 Potassium 4.1 Chloride 109 H Carbon Dioxide 21.7 Anion Gap 9 BUN 68 H Creatinine 1.90 H Estimated GFR 26 L Random Glucose 101 Calcium 8.5 Magnesium 1.7 Total Bilirubin 0.3 AST 15 ALT 19 Alkaline Phosphatase 106 Ammonia Troponin I Less than 0.02 L Total Protein 7.2 Albumin 3.5 Lipase 102 Blood Type Blood Type Recheck Antibody Screen 01/30/18 01/30/18 05:15 05:15 WBC RBC Hgb Hct MCV MCH MCHC RDW Plt Count MPV Neut % (Auto) Lymph % (Auto) [place] % (Auto) Eos % (Auto) Baso % (Auto) Neut # (Auto) Lymph # (Auto) [place] # (Auto) Eos # (Auto) Baso # (Auto) WBC Differential Differential Comment PT INR APTT Sodium Potassium Chloride Carbon Dioxide Anion Gap BUN Creatinine Estimated GFR Random Glucose Calcium Magnesium Total Bilirubin AST ALT Alkaline Phosphatase Ammonia 25 Troponin I Total Protein Albumin Lipase Blood Type A Negative Blood Type Recheck Required Antibody Screen Negative - Imaging Impressions Chest X-Ray 01/30/18 05:06 CONCLUSION: No evidence of acute cardiopulmonary disease. Abdomen/Pelvis CT 01/30/18 06:23 CONCLUSION: 1. Transpedicular fixation L4-L5 with fracture of the hardware 2. Previous gastric bypass surgery 3. Spinal stimulator 4. Do not see an etiology for the blood in the stool. <Darion Maddox - Last Filed: 01/30/18 11:52> Assessment and Plan (1) Melena Status: Acute Code(s): K92.1 - Melena (2) GI bleed Status: Acute Code(s): K92.2 - Gastrointestinal hemorrhage, unspecified - Plan This patient is a 68-year-old female with a past medical history of gastric bypass, GERD, chronic pain, anxiety chronic neck and back pain, osteoarthritis and fibromyalgia. Patient's surgical history includes bilateral knee replacement, carpal tunnel surgery, cholecystectomy, appendectomy and gastric bypass ([id number]) and spinal fusion of the lumbar spine. Our service has been consulted to evaluate patient's report of dark "tarry black " stools times 1 day. On consultation patient reports onset of black tarry stools yesterday. Patient states that there has also been noted to be some bright red blood in the toilet water as well. Patient also reports lower abdominal pain that she describes as cramping which is intermittent. Patient denies any alleviating or aggravating factors. Denies any use of blood thinners, significant ingestion of green leafy vegetables, or use of Pepto-Bismol. Patient denies any use of NSAIDs or aspirin. Patient denies nausea or vomiting. She states her last EGD/colonoscopy was done 4-5 years ago out of state in [place] and was normal to her recollection. Patient states her stools are normally formed and brown without any noted blood. She takes Linzess every other day for what she describes as opioid- induced constipation. Patient uses fentanyl patch and hydrocodone- acetaminophen for chronic pain. Patient denies heartburn but states that she experiences occasional nausea vomiting since gastric bypass surgery. She is presently taking ranitidine 150 mg p.o. twice daily, famotidine 20 mg p.o. daily. Patient denies any known family history of any gastrointestinal disorders/diseases and denies any use of tobacco or alcohol products. GI bleed/melena stools Patient endorses history of stools that are "black as tar", times 1 day. States bright red blood in toilet water as well. Melena accompanied by lower abdominal cramping. Denies any nausea vomiting. History of gastric bypass, EGD /colonoscopy as noted above. Hemoglobin 10.3 hematocrit 31.4 INR 1.1. Discussed need for EGD, patient verbalizes understanding and agreement. Plan -Maintain n.p.o. for now -Obtain consent for EGD -EGD today -Avoid anticoagulants, NSAIDs, aspirin -Continue PPI -Antiemetic as per attending -Monitor labs -Monitor for bleeding -Supportive care -Further recommendations to follow This patient has been seen by myself and Dr. Maddox and this note is written on his behalf - Attending Attestation Dr. Maddox <Ximena Sahni - Last Filed: 01/30/18 11:09> (1) Melena Status: Acute Code(s): K92.1 - Melena (2) GI bleed Status: Acute Code(s): K92.2 - Gastrointestinal hemorrhage, unspecified - Attending Attestation Patient was seen and examined, agree with above note, since the patient having black stool this is more indicative of an upper GI bleed so we will plan on upper endoscopy, if this is negative then patient may need to have colonoscopy as an outpatient or inpatient if there is sign of active bleeding, patient seems to be very comfortable. Further plan depends on the finding on the upper endoscopy <Darion Maddox - Last Filed: 01/30/18 11:52> <Ximena Sahni - Last Filed: 01/30/18 11:09> (2) GI bleed Qualifiers: GI bleed type/associated pathology: melena Qualified Code(s): K92.1 - Melena <Darion Maddox - Last Filed: 01/30/18 11:52> (2) GI bleed Qualifiers: GI bleed type/associated pathology: melena Qualified Code(s): K92.1 - Melena
[2018-01-30] MEDS ORDERED: Lidocaine PF 1% Inj 5 ML Syringe INFILTRATN ONE (11:50)
--- NOTE | 2018-01-30 12:04 | P.PCN ---
Date of procedure: 01/30/18 Procedure: THANK YOU FOR THE REFERRAL Indication; black tarry stools, history of gastric bypass Procedure Performed; upper endoscopy with biopsy After informing the patient about procedure and possible complications consent was signed. history and physical were updated. Patient was taken to the procedure room and placed in position. Time out was completed. Adequate sedation was performed by anesthesia provider. Upper Endoscopy, the scope was placed in the mouth advanced under video guide to the second portion of the duodenum, then the scope was withdrawal to the stomach and retro-flexion was performed, the scope was withdrawal to the esophagus then out of the mouth without any immediate complication Findings; Esophagus: Normal except minimal irregular Z line Stomach anatomy consistent with gastric bypass, large ulcer in the anastomotic area no active bleeding, deep. Biopsy was done Duodenum normal Most likely the bleeding from the ulcer but no active bleeding at this point Recommendations; 1- Supportive care 2- ok to transfer to recovery area then discharge per protocol 3-Protonix 40 mg daily 4-soft diet 5- EGD in 2-month to evaluate the ulcer 6-monitor H&H and if hemoglobin stable and tolerate diet then patient can be discharged later today or tomorrow morning 7-Protonix 40 mg daily
[2018-01-30 13:59] LABS: Hematocrit 25.6 % (35.0-46.0); Hemoglobin 8.5 gm/dL (11.6-15.3)
[2018-01-30 16:39] LABS: Hematocrit 23.6 % (35.0-46.0); Hemoglobin 7.9 gm/dL (11.6-15.3)
[2018-01-30 18:32] LABS: Bilirubin,Urine Negative (Negative); Clarity,Urine Clear (Clear); Color,Urine Straw (Yellw/Straw); Glucose,Urine (UA) Negative (Negative); Hyaline Casts,Urine 1 /lpf (0-3); Leukocyte Esterase,Urine Negative (Negative); Nitrite,Urine Negative (Negative); Specific Gravity,Urine 1.015 (1.002-1.035); Squamous Epithelial Cell,Urine 1 /hpf (0-5)
[2018-01-30 20:57] LABS: Hematocrit 23.3 % (35.0-46.0); Hemoglobin 7.9 gm/dL (11.6-15.3)
[2018-01-30] MEDS ORDERED: traZODone 100 MG Tablet PO PRN (21:00)
[2018-01-31 04:07] LABS: Baso % (Auto) 0.4 % (0.0-2.0); Eos # (Auto) 0.1 th/mm3 (0.0-0.4); Eos % (Auto) 2.3 % (0.0-4.0); Hematocrit 21.7 % (35.0-46.0); Hemoglobin 7.5 gm/dL (11.6-15.3); Lymph # (Auto) 1.7 th/mm3 (1.0-4.8); Lymph % (Auto) 30.5 % (9.0-44.0); Mean Corpuscular HGB Conc 34.4 % (32.0-36.0); Mean Corpuscular Hemoglobin 33.4 pg (27.0-34.0); Mean Platelet Volume 8.5 fL (7.0-11.0); Mono # (Auto) 0.5 th/mm3 (0.0-0.9); Mono % (Auto) 9.4 % (0.0-8.0); Neut # (Auto) 3.1 th/mm3 (1.8-7.7); Neut % (Auto) 57.4 % (16.0-70.0); Platelet Count 142 th/mm3 (150-450); Red Blood Count 2.24 mil/mm3 (4.00-5.30); Red Cell Distribution Width 13.6 % (11.6-17.2); White Blood Count 5.5 th/mm3 (4.0-11.0)
[2018-01-31 04:29] LABS: Alanine Aminotransferase 14 U/L (10-53); Albumin 2.8 g/dL (3.4-5.0); Alkaline Phosphatase 87 U/L (45-117); Anion Gap 5 meq/L (5-15); Aspartate Aminotransferase 13 U/L (15-37); Blood Urea Nitrogen 62 mg/dL (7-18); Calcium 8.2 mg/dL (8.5-10.1); Carbon Dioxide 24.4 meq/L (21.0-32.0); Chloride 115 meq/L (98-107); Glomerular Filtration Rate 29 mL/min (>89); Glucose,Random 66 mg/dL (74-106); Potassium 5.3 meq/L (3.5-5.1); Sodium 144 meq/L (136-145); Total Protein 5.7 g/dL (6.4-8.2)
[2018-01-31] MEDS: Sod Chloride 0.9% Inj 1,000 ML IV.CONT SCH (06:45)
[2018-01-31] MEDS ORDERED: Allopurinol 100 MG Tablet PO SCH (09:00)
[2018-01-31] MEDS ORDERED: FLUoxetine 10 MG Capsule PO SCH (09:00)
[2018-01-31] MEDS ORDERED: Ferrous Sulfate 325 MG Tablet PO SCH (09:00)
--- NOTE | 2018-01-31 09:16 | P.DS ---
Date of admission: 01/30/18 08:35 Primary care physician: No Primary Care Physician Brief History from admission: The is a 68 y/o CF with PMHx of Gastric Bypass, GERD, and Chronic pain who presents to the [facility] emergency department with a history of generalized weakness, fatigue, and melena that began yesterday at 12:30 PM. She reports that she had a large bowel movement that was loose with dark contents around the stool that looked like old blood. Patient also reports that there were small amounts of bright red blood around the toilet bowl ring. Patient is on FeSulfate but reports that her stool is different from baseline. She reports that she had 2 additional BM's prior to coming to the emergency department that were the same. Patient reports that she last had a colonoscopy done 1 year ago which was WNL in [place]. She denies ever having a GI bleed previously. Hx of chronic back pain related to degenerative disc disease s/p fusion, patient had an epidural steroid injection on Tuesday. Patient also has a history of a EGD and colonoscopy that were WNL 4-5 years ago which were done due to abdominal pain status post gastric bypass surgery. Patient used to see a GI doctor in [place] but here in [place] sees a craft superintendent and a PCP, Dr. Eduardo. Of note, patient moved from [place] 6 months ago. DS: Diagnosis - Discharge Diagnosis (1) Gastric ulcer Status: Acute (2) GI bleed Status: Acute (3) Melena Status: Acute (4) Anxiety Status: Chronic (5) Depression Status: Chronic (6) GERD (gastroesophageal reflux disease) Status: Chronic DS: Medications - Discharge Medications Prescriptions: pantoprazole [Protonix] 40 mg PO DAILY #60 tab DS: Summary Hospital Course: 68-year female with past medical history of gastric bypass, GERD, and chronic pain admitted for inpatient management of GI bleed. Patient S/P EGD : Large ulcer in the anastomotic area no active bleeding. Biopsy was done. Most likely the bleeding from the ulcer but no active bleeding at this point . Continue Protonix 40 mg daily EGD in 2-month to evaluate the ulcer HGB however into a lower side however patient is asymptomatic at this time. No active bleeding at this time. Type and screen , received 1U blood prior to discharge. Continue iron supplement. To Follow-up with GI as outpatient Patient discharged in stable condition to follow-up with PCP and consultants as outpatient. - Time Spent with Patient Total time spent providing and/or coordinating discharge services: Greater than 30 minutes - Quality: VTE Deep Vein Thrombosis/Pulmonary Embolism Present on Admission: No Exam Vital signs: Vital Signs 01/30/18 12:25 01/30/18 16:00 01/30/18 20:00 Temperature 97.5 F L 98.6 F 98.0 F Pulse Rate 74 70 81 Respiratory Rate 18 16 16 Blood Pressure 100/53 L 94/44 L 112/56 L Pulse Oximetry 98 100 99 01/31/18 00:00 01/31/18 03:49 01/31/18 07:27 Temperature 98.0 F 97.9 F 98.3 F Pulse Rate 83 88 75 Respiratory Rate 16 16 16 Blood Pressure 108/59 L 128/59 L 103/52 L Pulse Oximetry 100 100 99 Intake & Output 01/30/18 01/31/18 01/31/18 18:59 06:59 18:59 Intake Total 370 / 370 5840 / 5840 Output Total 250 / 250 250 / 250 Balance 120 / 120 5590 / 5590 Intake: IV 100 / 100 1999 Protonix Inj 80 MG In NS Inj 100 / 100 100 ML @ 10 mls/hr IV.CONT [facility] Rx#:[id number] NS Inj 1,000 ML @ 125 mls/hr IV 0 / 0 1999 .CONT .Q8H [facility] Rx#:[id number] Oral 220 / 220 840 / 840 Anesthesia Amount 50 / 50 0 / 0 Other 3000 / 3000 Output: Urine 250 / 250 250 / 250 Other: Other Intake Source Saline Solution # Voids 1 2 Date of Last Bowel Movement 01/29/18 01/30/18 Narrative: GENERAL: Very pleasant female, in no acute distress, lying comfortably in bed CARDIOVASCULAR: Regular rate and rhythm without murmurs, gallops, or rubs. RESPIRATORY: Breath sounds equal bilaterally. No accessory muscle use. GASTROINTESTINAL: Abdomen soft, non-tender, nondistended. Neg rebound, well- healed surgical scars. MUSCULOSKELETAL: No cyanosis, or edema. BACK: Nontender without obvious deformity. No CVA tenderness. NEURO: AAO x3, no focal deficits, motor system intact 5/5, speech clear. Results Procedures completed during hospitalization: EGD Pending studies at discharge: Pending at discharge 01/30/18 16:12 Surgical [PTH] Routine Labs on day of discharge: Labs from last 24 hours 01/31/18 01/31/18 01/30/18 03:32 03:32 20:43 WBC 5.5 D RBC 2.24 L Hgb 7.5 L 7.9 L Hct 21.7 L 23.3 L MCV 97.0 MCH 33.4 MCHC 34.4 RDW 13.6 Plt Count 142 L D MPV 8.5 Neut % (Auto) 57.4 Lymph % (Auto) 30.5 [place] % (Auto) 9.4 H Eos % (Auto) 2.3 Baso % (Auto) 0.4 Neut # (Auto) 3.1 Lymph # (Auto) 1.7 [place] # (Auto) 0.5 Eos # (Auto) 0.1 Baso # (Auto) 0.0 WBC Differential . Differential Comment Auto diff final Sodium 144 Potassium 5.3 H D Chloride 115 H Carbon Dioxide 24.4 Anion Gap 5 BUN 62 H Creatinine 1.76 H Estimated GFR 29 L Random Glucose 66 L Calcium 8.2 L Total Bilirubin 0.2 AST 13 L ALT 14 Alkaline Phosphatase 87 Total Protein 5.7 L D Albumin 2.8 L D Urine Color Urine Clarity Urine pH Ur Specific [place] Urine Protein Urine Glucose (UA) Urine Ketones Urine Occult Blood Urine Nitrate Urine Bilirubin Urine Urobilinogen Ur Leukocyte Esterase Urine RBC Urine WBC Ur Squamous Epith Cells Hyaline Casts Ur Microscopic Review 01/30/18 01/30/18 01/30/18 16:22 15:00 13:50 WBC RBC Hgb 7.9 L 8.5 L Hct 23.6 L 25.6 L MCV MCH MCHC RDW Plt Count MPV Neut % (Auto) Lymph % (Auto) [place] % (Auto) Eos % (Auto) Baso % (Auto) Neut # (Auto) Lymph # (Auto) [place] # (Auto) Eos # (Auto) Baso # (Auto) WBC Differential Differential Comment Sodium Potassium Chloride Carbon Dioxide Anion Gap BUN Creatinine Estimated GFR Random Glucose Calcium Total Bilirubin AST ALT Alkaline Phosphatase Total Protein Albumin Urine Color Straw Urine Clarity Clear Urine pH 5.0 Ur Specific [place] 1.015 Urine Protein 30 H Urine Glucose (UA) Negative Urine Ketones Negative Urine Occult Blood Negative Urine Nitrate Negative Urine Bilirubin Negative Urine Urobilinogen Less than 2 Ur Leukocyte Esterase Negative Urine RBC Less than 1 Urine WBC 1 Ur Squamous Epith Cells 1 Hyaline Casts 1 Ur Microscopic Review Not Reportable - Impressions ITS Impressions Chest X-Ray 01/30/18 05:06 CONCLUSION: No evidence of acute cardiopulmonary disease. Abdomen/Pelvis CT 01/30/18 06:23 CONCLUSION: 1. Transpedicular fixation L4-L5 with fracture of the hardware 2. Previous gastric bypass surgery 3. Spinal stimulator 4. Do not see an etiology for the blood in the stool. Discharge Plan - Discharge Disposition Patient Disposition: 01 Discharge Home - Discharge Condition Condition: Stable - Discharge Order Discharge Orders: Discharge Order (Routine); Ordered 01/31/18 Ordered By: Janeth Toure - Discharge Details Anticipated Discharge Date: 01/31/18 - Physicians Team Primary Care Provider: Primary Care Maral Lewis Attending Provider: Janeth Toure Other Providers: Darion Maddox MD
[2018-01-31] MEDS ORDERED: Sodium Chlor 0.9% Inj 250 ML IV.SIG SCH (11:00)
--- NOTE | 2018-01-31 11:04 | P.PNGI ---
Subjective Interval history: Patient sitting up in bed awake and alert. Post EGD, denies any obvious bleeding. <Sahni,Ximena - Last Filed: 01/31/18 10:55> Physical Exam Vital signs: Vital Signs 01/30/18 12:25 01/30/18 16:00 01/30/18 20:00 Temperature 97.5 F L 98.6 F 98.0 F Pulse Rate 74 70 81 Respiratory Rate 18 16 16 Blood Pressure 100/53 L 94/44 L 112/56 L Pulse Oximetry 98 100 99 01/31/18 00:00 01/31/18 03:49 01/31/18 07:27 Temperature 98.0 F 97.9 F 98.3 F Pulse Rate 83 88 75 Respiratory Rate 16 16 16 Blood Pressure 108/59 L 128/59 L 103/52 L Pulse Oximetry 100 100 99 01/31/18 08:00 Temperature Pulse Rate Respiratory Rate 16 Blood Pressure Pulse Oximetry Intake & Output 01/30/18 01/31/18 01/31/18 18:59 06:59 18:59 Intake Total 370 / 370 5840 / 5840 Output Total 250 / 250 250 / 250 Balance 120 / 120 5590 / 5590 Intake: IV 100 / 100 1999 Protonix Inj 80 MG In NS Inj 100 / 100 100 ML @ 10 mls/hr IV.CONT [facility] Rx#:[id number] NS Inj 1,000 ML @ 125 mls/hr IV 0 / 0 1999 .CONT .Q8H [facility] Rx#:[id number] Oral 220 / 220 840 / 840 Anesthesia Amount 50 / 50 0 / 0 Other 3000 / 3000 Output: Urine 250 / 250 250 / 250 Other: Other Intake Source Saline Solution # Voids 1 2 Date of Last Bowel Movement 01/29/18 01/30/18 01/30/18 - Constitutional no acute distress - Routine HEENT Exam Head: Present: normocephalic - Routine Respiratory Exam Present: CTA bilaterally. Absent: accessory muscle use - Routine Cardiovascular Exam Present: RRR - Routine Abdominal Exam Present: soft, normoactive bowel sounds. Absent: tenderness, distended, guarding, firm - Routine Extremities Exam Present: full ROM. Absent: edema - Routine Skin Exam Present: dry, warm - Routine Neurological Exam Present: alert, oriented X3 - Routine Psychiatric Exam Present: normal affect, cooperative <Sahni,Ximena - Last Filed: 01/31/18 10:55> Vital signs: Vital Signs 01/30/18 20:00 01/31/18 00:00 01/31/18 03:49 Temperature 98.0 F 98.0 F 97.9 F Pulse Rate 81 83 88 Respiratory Rate 16 16 16 Blood Pressure 112/56 L 108/59 L 128/59 L Pulse Oximetry 99 100 100 01/31/18 07:27 01/31/18 08:00 01/31/18 11:25 Temperature 98.3 F Pulse Rate 75 72 Respiratory Rate 16 16 16 Blood Pressure 103/52 L 104/53 L Pulse Oximetry 99 98 01/31/18 13:19 01/31/18 13:33 01/31/18 13:34 Temperature 98.5 F 98.5 F 98.4 F Pulse Rate 76 70 68 Respiratory Rate 16 16 16 Blood Pressure 105/43 L 94/51 L 102/43 L Pulse Oximetry 98 Intake & Output 01/30/18 01/31/18 01/31/18 18:59 06:59 18:59 Intake Total 370 / 370 5840 / 5840 1400 / 1400 Output Total 250 / 250 250 / 250 Balance 120 / 120 5590 / 5590 1400 / 1400 Intake: IV 100 / 100 2000 / 2000 600 / 600 Protonix Inj 80 MG In NS Inj 100 / 100 100 ML @ 10 mls/hr IV.CONT [facility] Rx#:[id number] NS Inj 1,000 ML @ 125 mls/hr IV 0 / 0 2000 / 2000 600 / 600 .CONT .Q8H [facility] Rx#:[id number] Oral 220 / 220 840 / 840 Anesthesia Amount 50 / 50 0 / 0 Other 3000 / 3000 400 / 400 Rbc As-3 Leukoreduced Unit 400 / 400 [id number] Intake (Blood Product) Amt 400 / 400 Rbc As-3 Leukoreduced Unit 400 / 400 [id number] Output: Urine 250 / 250 250 / 250 Other: Other Intake Source Saline Solution # Voids 1 2 Date of Last Bowel Movement 01/29/18 01/30/18 01/30/18 <Darion Maddox - Last Filed: 01/31/18 16:43> Results - Labs CBC & Chem 7: 01/31/18 03:32 01/31/18 03:32 Laboratory Results - last 24 hr 10/29/18 10/29/18 10/29/18 13:50 15:00 16:22 WBC RBC Hgb 8.5 L 7.9 L Hct 25.6 L 23.6 L MCV MCH MCHC RDW Plt Count MPV Neut % (Auto) Lymph % (Auto) [place] % (Auto) Eos % (Auto) Baso % (Auto) Neut # (Auto) Lymph # (Auto) [place] # (Auto) Eos # (Auto) Baso # (Auto) WBC Differential Differential Comment Sodium Potassium Chloride Carbon Dioxide Anion Gap BUN Creatinine Estimated GFR Random Glucose Calcium Total Bilirubin AST ALT Alkaline Phosphatase Total Protein Albumin Urine Color Straw Urine Clarity Clear Urine pH 5.0 Ur Specific [place] 1.015 Urine Protein 30 H Urine Glucose (UA) Negative Urine Ketones Negative Urine Occult Blood Negative Urine Nitrate Negative Urine Bilirubin Negative Urine Urobilinogen Less than 2 Ur Leukocyte Esterase Negative Urine RBC Less than 1 Urine WBC 1 Ur Squamous Epith Cells 1 Hyaline Casts 1 Ur Microscopic Review Not Reportable 01/30/18 01/31/18 01/31/18 20:43 03:32 03:32 WBC 5.5 D RBC 2.24 L Hgb 7.9 L 7.5 L Hct 23.3 L 21.7 L MCV 97.0 MCH 33.4 MCHC 34.4 RDW 13.6 Plt Count 142 L D MPV 8.5 Neut % (Auto) 57.4 Lymph % (Auto) 30.5 [place] % (Auto) 9.4 H Eos % (Auto) 2.3 Baso % (Auto) 0.4 Neut # (Auto) 3.1 Lymph # (Auto) 1.7 [place] # (Auto) 0.5 Eos # (Auto) 0.1 Baso # (Auto) 0.0 WBC Differential . Differential Comment Auto diff final Sodium 144 Potassium 5.3 H D Chloride 115 H Carbon Dioxide 24.4 Anion Gap 5 BUN 62 H Creatinine 1.76 H Estimated GFR 29 L Random Glucose 66 L Calcium 8.2 L Total Bilirubin 0.2 AST 13 L ALT 14 Alkaline Phosphatase 87 Total Protein 5.7 L D Albumin 2.8 L D Urine Color Urine Clarity Urine pH Ur Specific [place] Urine Protein Urine Glucose (UA) Urine Ketones Urine Occult Blood Urine Nitrate Urine Bilirubin Urine Urobilinogen Ur Leukocyte Esterase Urine RBC Urine WBC Ur Squamous Epith Cells Hyaline Casts Ur Microscopic Review <Bora,Ximena - Last Filed: 01/31/18 10:55> - Labs CBC & Chem 7: 01/31/18 11:45 01/31/18 03:32 Laboratory Results - last 24 hr 01/30/18 01/30/18 01/31/18 15:00 20:43 03:32 WBC 5.5 D RBC 2.24 L Hgb 7.9 L 7.5 L Hct 23.3 L 21.7 L MCV 97.0 MCH 33.4 MCHC 34.4 RDW 13.6 Plt Count 142 L D MPV 8.5 Neut % (Auto) 57.4 Lymph % (Auto) 30.5 [place] % (Auto) 9.4 H Eos % (Auto) 2.3 Baso % (Auto) 0.4 Neut # (Auto) 3.1 Lymph # (Auto) 1.7 [place] # (Auto) 0.5 Eos # (Auto) 0.1 Baso # (Auto) 0.0 WBC Differential . Differential Comment Auto diff final Sodium Potassium Chloride Carbon Dioxide Anion Gap BUN Creatinine Estimated GFR Random Glucose Calcium Total Bilirubin AST ALT Alkaline Phosphatase Total Protein Albumin Urine Color Straw Urine Clarity Clear Urine pH 5.0 Ur Specific [place] 1.015 Urine Protein 30 H Urine Glucose (UA) Negative Urine Ketones Negative Urine Occult Blood Negative Urine Nitrate Negative Urine Bilirubin Negative Urine Urobilinogen Less than 2 Ur Leukocyte Esterase Negative Urine RBC Less than 1 Urine WBC 1 Ur Squamous Epith Cells 1 Hyaline Casts 1 Ur Microscopic Review Not Reportable MTS Gel Crossmatch 01/31/18 01/31/18 01/31/18 03:32 10:55 11:45 WBC RBC Hgb 7.5 L Hct 22.2 L MCV MCH MCHC RDW Plt Count MPV Neut % (Auto) Lymph % (Auto) [place] % (Auto) Eos % (Auto) Baso % (Auto) Neut # (Auto) Lymph # (Auto) [place] # (Auto) Eos # (Auto) Baso # (Auto) WBC Differential Differential Comment Sodium 144 Potassium 5.3 H D Chloride 115 H Carbon Dioxide 24.4 Anion Gap 5 BUN 62 H Creatinine 1.76 H Estimated GFR 29 L Random Glucose 66 L Calcium 8.2 L Total Bilirubin 0.2 AST 13 L ALT 14 Alkaline Phosphatase 87 Total Protein 5.7 L D Albumin 2.8 L D Urine Color Urine Clarity Urine pH Ur Specific [place] Urine Protein Urine Glucose (UA) Urine Ketones Urine Occult Blood Urine Nitrate Urine Bilirubin Urine Urobilinogen Ur Leukocyte Esterase Urine RBC Urine WBC Ur Squamous Epith Cells Hyaline Casts Ur Microscopic Review MTS Gel Crossmatch See Detail 01/31/18 11:45 WBC 6.5 RBC 2.22 L Hgb 7.5 L Hct 22.2 L MCV 96.6 MCH 34.0 MCHC 35.2 RDW 13.6 Plt Count 155 MPV 9.0 Neut % (Auto) 64.4 Lymph % (Auto) 24.8 [place] % (Auto) 8.3 H Eos % (Auto) 2.2 Baso % (Auto) 0.3 Neut # (Auto) 4.2 Lymph # (Auto) 1.6 [place] # (Auto) 0.5 Eos # (Auto) 0.1 Baso # (Auto) 0.0 WBC Differential . Differential Comment Auto diff final Sodium Potassium Chloride Carbon Dioxide Anion Gap BUN Creatinine Estimated GFR Random Glucose Calcium Total Bilirubin AST ALT Alkaline Phosphatase Total Protein Albumin Urine Color Urine Clarity Urine pH Ur Specific [place] Urine Protein Urine Glucose (UA) Urine Ketones Urine Occult Blood Urine Nitrate Urine Bilirubin Urine Urobilinogen Ur Leukocyte Esterase Urine RBC Urine WBC Ur Squamous Epith Cells Hyaline Casts Ur Microscopic Review MTS Gel Crossmatch <Darion Maddox - Last Filed: 01/31/18 16:43> Assessment and Plan (1) Melena Status: Acute Code(s): K92.1 - Melena (2) GI bleed Status: Acute Code(s): K92.2 - Gastrointestinal hemorrhage, unspecified - Plan This patient is a 68-year-old female with a past medical history of gastric bypass, GERD, chronic pain, anxiety chronic neck and back pain, osteoarthritis and fibromyalgia. Patient's surgical history includes bilateral knee replacement, carpal tunnel surgery, cholecystectomy, appendectomy and gastric bypass ([id number]) and spinal fusion of the lumbar spine. Our service has been consulted to evaluate patient's report of dark "tarry black " stools times 1 day. On consultation patient reports onset of black tarry stools yesterday. Patient states that there has also been noted to be some bright red blood in the toilet water as well. Patient also reports lower abdominal pain that she describes as cramping which is intermittent. Patient denies any alleviating or aggravating factors. Denies any use of blood thinners, significant ingestion of green leafy vegetables, or use of Pepto-Bismol. Patient denies any use of NSAIDs or aspirin. Patient denies nausea or vomiting. She states her last EGD/colonoscopy was done 4-5 years ago out of state in [place] and was normal to her recollection. Patient states her stools are normally formed and brown without any noted blood. She takes Linzess every other day for what she describes as opioid- induced constipation. Patient uses fentanyl patch and hydrocodone- acetaminophen for chronic pain. Patient denies heartburn but states that she experiences occasional nausea vomiting since gastric bypass surgery. She is presently taking ranitidine 150 mg p.o. twice daily, famotidine 20 mg p.o. daily. Patient denies any known family history of any gastrointestinal disorders/diseases and denies any use of tobacco or alcohol products. GI bleed/melena stools Patient endorses history of stools that are "black as tar", times 1 day. States bright red blood in toilet water as well. Melena accompanied by lower abdominal cramping. Denies any nausea vomiting. History of gastric bypass, EGD /colonoscopy as noted above. Hemoglobin 10.3 hematocrit 31.4 INR 1.1. Discussed need for EGD, patient verbalizes understanding and agreement. 01/31/2018 Patient denies any noted bleeding. Denies abdominal cramping or nausea vomiting at this time. States tolerated diet well. Patient is post EGD with the following findings: Esophagus: Normal except minimal irregular Z line Stomach anatomy consistent with gastric bypass, large ulcer in the anastomotic area no active bleeding, deep. Biopsy was done Duodenum normal. Hemoglobin 7.5 hematocrit 21.7 platelet count 142. Repeat H&H Plan -Bariatric diet as tolerated -Monitor H&H -Monitor for bleeding -Transfuse if required -Protonix 40 mg p.o. daily -Patient may be discharged home if hemoglobin stable and patient continues to tolerate diet -Recommended repeat EGD in 2 months-for evaluation of gastric ulcer This patient has been seen by myself and Dr. Maddox and this note is written on his behalf - Attending Attestation Dr. Maddox <Ximena Sahni - Last Filed: 01/31/18 10:55> (1) Melena Status: Acute Code(s): K92.1 - Melena (2) GI bleed Status: Acute Code(s): K92.2 - Gastrointestinal hemorrhage, unspecified - Attending Attestation Patient was seen and examined, seems to be more comfortable, no abdominal pain, continue PPI. Will give patient packed RBC as needed, she will need EGD in 2- month <Darion Maddox - Last Filed: 01/31/18 16:43> <Ximena Sahni - Last Filed: 01/31/18 10:55> (2) GI bleed Qualifiers: GI bleed type/associated pathology: melena Qualified Code(s): K92.1 - Melena <Darion Maddox - Last Filed: 01/31/18 16:43> (2) GI bleed Qualifiers: GI bleed type/associated pathology: melena Qualified Code(s): K92.1 - Melena
[2018-01-31 11:59] LABS: Hematocrit 22.2 % (35.0-46.0); Hemoglobin 7.5 gm/dL (11.6-15.3)
[2018-01-31 13:36] LABS: Baso % (Auto) 0.3 % (0.0-2.0); Eos # (Auto) 0.1 th/mm3 (0.0-0.4); Eos % (Auto) 2.2 % (0.0-4.0); Hematocrit 22.2 % (35.0-46.0); Hemoglobin 7.5 gm/dL (11.6-15.3); Lymph # (Auto) 1.6 th/mm3 (1.0-4.8); Lymph % (Auto) 24.8 % (9.0-44.0); Mean Corpuscular HGB Conc 35.2 % (32.0-36.0); Mean Corpuscular Volume 96.6 fL (80.0-100.0); Mono # (Auto) 0.5 th/mm3 (0.0-0.9); Mono % (Auto) 8.3 % (0.0-8.0); Neut # (Auto) 4.2 th/mm3 (1.8-7.7); Neut % (Auto) 64.4 % (16.0-70.0); Platelet Count 155 th/mm3 (150-450); Red Blood Count 2.22 mil/mm3 (4.00-5.30); Red Cell Distribution Width 13.6 % (11.6-17.2); White Blood Count 6.5 th/mm3 (4.0-11.0)
--- NOTE | 2018-01-31 14:52 | ECG ---
Date Performed: 01/30/2018 Time Performed: 11:40:36 PTAGE: 68 years EKG: Sinus rhythm MODERATE VOLTAGE CRITERIA FOR LVH, CONSIDER NORMAL VARIANT BORDERLINE ECG INTERPRETATION BASED ON A DEFAULT AGE OF 40 YEARS NO PREVIOUS TRACING DOCTOR: Kamran Betancourt Interpretating Date/Time 01/31/2018 14:48:58
== END 2018-01-31 17:06 | disposition home or self-care (01) ==
LOC: NEDA 04:34 → NEPE 04:34 → NEDA 09:41 → NEPFCDU 09:45
PROVIDERS: ADMIT Hospitalist; ATTEND Hospitalist